=== PATIENT | female | born 1985 | race Caucasian/White ===

== ENCOUNTER 2017-03-15 08:02 | Emergency (ER) | payer OTHER ==
[~2017-03-15] VITALS: Ht 165.1 cm; Wt 95.0 kg
[~2017-03-15 08:02] MED LIST: ACET1TAB40 PO; ACET500C5 PO; AMO500 PO; CEPH-443 PO; IBUP-1542 PO; NAPR-260 PO; ONDA4TAB35 PO
[2017-03-15 08:07] VITALS: Ht 165.1 cm; Wt 95.0 kg
[2017-03-15] MEDS ORDERED: LIDOCAINE/MYLANTA 40 ML BTL PO STA (08:26)
[2017-03-15] MEDS ORDERED: FAMOTIDINE 20 MG TAB PO STA (08:26)
[2017-03-15] MEDS ORDERED: SOD CHLORIDE 0.9% 1,000 ML IV STA (08:26)
[2017-03-15] MEDS ORDERED: morphine 2 MG INJ IV STA (08:26)
[2017-03-15] MEDS ORDERED: ONDANSETRON 4 MG INJ IV STA ×2 (08:26→10:17)
[2017-03-15] MEDS ORDERED: ACETAMINOPHEN 325 MG TAB PO ONE (08:30)
--- NOTE | 2017-03-15 08:39 | ERD ---
ER Documentation Chief Complaint Date/Time DATE: 03/15/17 TIME: 08:35 Chief Complaint Complains of fever and vomiting x 3 days HPI Patient is a 32 year old female with no past medical history who presents to the ED with fever, non bloody non bilious emesis, and abdominal pain since last night. She states that the pain came on suddenly and is located in periumbilical region. States that she had an episode of non bloody non black non tarry diarrhea yesterday. No diarrhea today. States that she feels nauseous and has had a few episodes of emesis today. Took excedrin yesterday which minimally helped. Denies sick contacts. Denies recent travel or change in foods. Also complains of body aches. Denies seizures or rashes. Denies blurry vision or dizziness. ROS All systems reviewed and are negative except as per history of present illness. Medications Home Meds Active Scripts Nitrofurantoin Monohyd Macrocr* (Macrobid*) 100 Mg Capsr, 100 MG PO BID for 7 Days, CAP Prov:VI CAMPOSC 03/15/17 Acetaminophen* (Tylophen*) 500 Mg Capsule, 1 CAP PO Q6H Y for PAIN AND OR ELEVATED TEMP, #20 CAP Prov:VI CAMPOS-C 03/15/17 Ondansetron (Ondansetron Odt) 4 Mg Tab.rapdis, 4 MG PO Q6H Y for NAUSEA AND/OR VOMITING, #30 TAB Prov:VI CAMPOS-C 03/15/17 Acetaminophen* (Tylophen*) 500 Mg Capsule, 1 CAP PO Q6H Y for PAIN AND OR ELEVATED TEMP, #20 CAP Prov:MANAGUELOD,ISAIAS P USPS LETTER CARRIER 06/16/16 Amoxicillin* (Amoxicillin*) 500 Mg Cap, 500 MG PO TID for 7 Days, CAP Prov:MANAGUELOD,ISAIAS P USPS LETTER CARRIER 06/16/16 Cephalexin* (Keflex*) 500 Mg Capsule, 500 MG PO BID for 7 Days, CAP Prov:SERVANDO WATTS PA-C 05/17/16 Naproxen* (Naprosyn*) 500 Mg Tablet, 500 MG PO BID Y for PAIN AND/OR INFLAMMATION, #30 TAB Prov:JASON TORREZ USPS LETTER CARRIER 06/11/15 Ondansetron Hcl* (Zofran* ODT) 4 mg -ODT Tab.disper, 4 MG PO Q4H Y for NAUSEA AND OR VOMITING, #15 TAB Prov:CHOSEBASTIANA 03/15/15 Acetaminophen-Codeine* (Acetaminophen-Cod #3*) 300-30 Mg Tab, 1 TAB PO Q4H Y for PAIN LEVEL 6-10, #15 TAB Prov:CHO,LISA 03/15/15 Ibuprofen* (Motrin*) 600 Mg Tab, 600 MG PO Q6 for PAIN LEVEL 1-5, #15 TAB Prov:CHO,LISA 03/15/15 Allergies Allergies: Coded Allergies: No Known Allergy (Unverified , 03/15/17) PMhx/Soc History of Surgery: Yes (C SECTION ) Anesthesia Reaction: No Hx Neurological Disorder: No Hx Respiratory Disorders: No Hx Cardiac Disorders: No Hx Psychiatric Problems: No Hx Alcohol Use: Yes (social) Hx Substance Use: No Hx Tobacco Use: No Smoking Status: Never smoker FmHx Family History: No coronary disease, No diabetes, No other Physical Exam Vitals Vital Signs Date Time Temp Pulse Resp B/P Pulse Ox O2 Delivery O2 Flow Rate FiO2 03/15/17 10:37 99.2 103 16 119/63 99 Room Air 03/15/17 08:07 100.6 125 20 138/79 98 Physical Exam GENERAL: Well-developed, well-nourished female. Appears in no acute distress. HEAD: Normocephalic, atraumatic. EYES: Pupils are equally reactive bilaterally. EOMs grossly intact. No conjunctival erythema. ENT: Moist mucous membranes. No uvula deviation. No kissing tonsils. No exudates. NECK: Supple. No lymphadenopathy or thyromegaly. No meningismus. negative kernig. negative brudinski. LUNG: Clear to auscultation bilaterally. No rhonchi, wheezing, rales or coarse breath sounds. HEART: Regular rate and rhythm. No murmurs, rubs or gallops. ABDOMEN: No scars, ecchymosis or rashes noted. Soft,and nondistended. Positive bowel sounds in all four quadrants. No rebound tenderness, no guarding. (-) McBurneys point tenderness. No CVA tenderness. mild tenderness in periumbilical region on rlq or ruq or llq tenderness. BACK: No midline tenderness. Extremities: Equal pulses bilaterally. No peripheral clubbing, cyanosis or edema. No unilateral leg swelling. NEUROLOGIC: Alert and oriented. Moving all four extremities. 5/5 strength in all extremities. Normal speech. Steady gait. SKIN: Normal color. Warm and dry. No rashes or lesions. Capillary refill < 2 seconds Result Diagram: 03/15/17 0840 03/15/17 0840 Results 24 hrs Laboratory Tests Test 03/15/17 08:40 03/15/17 08:52 White Blood Count 6.910^3/ul Red Blood Count 5.1210^6/ul Hemoglobin 15.7g/dl Hematocrit 45.3% Mean Corpuscular Volume 88.5fl Mean Corpuscular Hemoglobin 30.7pg Mean Corpuscular Hemoglobin Concent 34.7g/dl Red Cell Distribution Width 12.3% Platelet Count 11323^3/UL Mean Platelet Volume 10.8fl Neutrophils % 78.3% Lymphocytes % 15.5% Monocytes % 5.4% Eosinophils % 0.3% Basophils % 0.1% Nucleated Red Blood Cells % 0.0/100WBC Neutrophils # 5.410^3/ul Lymphocytes # 1.110^3/ul Monocytes # 0.410^3/ul Eosinophils # 0.010^3/ul Basophils # 0.010^3/ul Nucleated Red Blood Cells # 0.010^3/ul Sodium Level 139mmol/L Potassium Level 3.6mmol/L Chloride Level 103mmol/L Carbon Dioxide Level 23mmol/L Anion Gap 17 Blood Urea Nitrogen 10mg/dl Creatinine 0.60mg/dl Glucose Level 121mg/dl Calcium Level 9.1mg/dl Total Bilirubin 0.5mg/dl Direct Bilirubin 0.00mg/dl Indirect Bilirubin 0.5mg/dl Aspartate Amino Transf (AST/SGOT) 89IU/L Alanine Aminotransferase (ALT/SGPT) 132IU/L Alkaline Phosphatase 117IU/L Total Protein 7.6g/dl Albumin 5.1g/dl Globulin 2.50g/dl Albumin/Globulin Ratio 2.04 Lipase 32U/L Urine Color LEONOR Urine Clarity CLOUDY Urine pH 5.0 Urine Specific [place] 1.027 Urine Ketones NEGATIVEmg/dL Urine Nitrite NEGATIVEmg/dL Urine Bilirubin NEGATIVEmg/dL Urine Urobilinogen NEGATIVEmg/dL Urine Leukocyte Esterase 1+Antonio/ul Urine Microscopic RBC 1/HPF Urine Microscopic WBC 6/HPF Urine Bacteria FEW/HPF Urine Hemoglobin NEGATIVEmg/dL Urine Glucose NEGATIVEmg/dL Urine Total Protein 2+mg/dl Current Medications Medications (Trade) Dose Ordered Sig/Thomas Route PRN Reason Start Time Stop Time Status Last Admin Dose Admin Sodium Chloride (NS) 1,000 ml @ 1,000 mls/hr Q1H STAT IV 03/15/17 08:26 03/15/17 09:25 DC 03/15/17 08:47 Morphine Sulfate (morphine) 2 mg ONCE STAT IV 03/15/17 08:26 03/15/17 08:29 DC 03/15/17 08:41 Ondansetron HCl (Zofran Inj) 4 mg ONCE STAT IV 03/15/17 08:26 03/15/17 08:29 DC 03/15/17 08:40 Famotidine (Pepcid) 20 mg ONCE STAT PO 03/15/17 08:26 03/15/17 08:29 DC 03/15/17 08:41 Miscellaneous Medication (Gi Cocktail (2)) 40 ml ONCE STAT PO 03/15/17 08:26 03/15/17 08:29 DC 03/15/17 08:40 Acetaminophen (Tylenol Tab) 650 mg ONCE ONCE PO 03/15/17 08:30 03/15/17 08:31 DC 03/15/17 08:40 Morphine Sulfate (morphine) 2 mg ONCE ONCE IV 03/15/17 10:30 03/15/17 10:31 DC 03/15/17 10:21 Ondansetron HCl (Zofran Inj) 4 mg ONCE STAT IV 03/15/17 10:17 03/15/17 10:19 DC 03/15/17 10:21 Procedures/MDM ER COURSE: I kept the patient and/or family informed of laboratory and diagnostic imaging results throughout the emergency room course. MEDICATIONS: Patient was given IV fluids, morphine and Zofran. Seen improvement in her symptoms with no adverse reaction. LAB INTERPRETATION: CBC showed no evidence of systemic infection or severe anemia. CMP showed no evidence of electrolyte abnormalities, severe acidosis, alkalosis, renal failure , or liver disease. Lipase showed no evidence of acute pancreatitis. UA shows 1 + leukocytes with no nitrites or hematuria. Urine test was negative. MEDICAL DECISION MAKING: This is a 32-year-old female with no past medical history who presents with periumbilical abdominal pain 1 day. Vital signs were reviewed.Patient is not hypoxic. Patient had a temperature of 100.6 here in the ED with the pulse of 125. Patient's abdominal pain was localized in the periumbilical region. Patient did not have right upper quadrant or epigastric pain. I have low suspicion for cholecystitis or choledocholithiasis. Patient did have slightly elevated transaminase days however her lipase and her bilirubin was within normal limits. I reexamined patient after administration of medication and patient did not have any abdominal pain upon examination. Patient seen improvement in her symptoms and was ready to be discharged home. Patient's abdominal pain is likely viral in etiology as she has been vomiting and had diarrhea. Low suspicion for ACS, AAA, perforated ulcer, bowel obstruction, cholecystitis, choledocholithiasis, cholangitis, pancreatitis, hepatic abscess, appendicitis, diverticulitis, gastroenteritis, hepatitis, peptic ulcer disease. Her urine does show 1+ leukocytes and I will be treating the patient for a UTI. Low suspicion for ovarian torsion, PID, tuboovarian abscess, ectopic , bowel obstruction, pyelonephritis, UTI, appendicitis, cervicitis, septic , molar , HELLP syndrome, preeclampsia, eclampsia, placenta previa, placenta abruptia. Patient's vitals are within normal limits. Her temperature is down trending her pulse is down trending. Low suspicion for ACS, PE, AAA, dissection, DVT DISCHARGE: At this time, patient is stable for discharge and outpatient management with no new complaints during the ER course. Patient was sent home with Macrobid, Zofran and Tylenol. Advised patient to have close follow-up and return in 8-12 hours for recheck. Patient will be discharged home with instructions to recheck for new or worsening symptoms such as fever, nausea, weakness, LOC and to follow up with primary care in the next 1-2 days. Patient was advised to return to the ER for any new or worsening symptoms. Plan was discussed and patient and/or family understands and agrees. Home instructions were given. Departure Diagnosis: Primary Impression: Abdominal pain Abdominal location: periumbilical Qualified Code: R10.33 - Periumbilical abdominal pain Condition: Stable VI CAMPOS PA-C Mar 15, 2017 08:39
[2017-03-15 09:16] LABS: ADD SCAN DIFF NO
[2017-03-15 09:19] LABS: BASOPHILS % 0.1 % (0.0-2.0); EOSINOPHILS % 0.3 % (0.0-7.0); HEMATOCRIT 45.3 % (37.0-47.0); HEMOGLOBIN 15.7 g/dl (12.0-16.0); LYMPHOCYTES # 1.1 10^3/ul (0.8-2.9); LYMPHOCYTES % 15.5 % (15.0-51.0); MEAN CORPUSCULAR HEMOGLOBIN 30.7 pg (29.0-33.0); MEAN CORPUSCULAR HGB CONC 34.7 g/dl (32.0-37.0); MEAN CORPUSCULAR VOLUME 88.5 fl (82.0-101.0); MEAN PLATELET VOLUME 10.8 fl (7.4-10.4); MONOCYTE # 0.4 10^3/ul (0.3-0.9); MONOCYTES % 5.4 % (0.0-11.0); NEUTROPHIL # 5.4 10^3/ul (1.6-7.5); NEUTROPHILS % 78.3 % (39.0-77.0); PLATELET COUNT 237 10^3/UL (140-415); RED BLOOD COUNT 5.12 10^6/ul (4.20-5.40); RED CELL DISTRIBUTION WIDTH 12.3 % (11.5-14.5); WHITE BLOOD COUNT 6.9 10^3/ul (4.8-10.8)
[2017-03-15 09:37] LABS: ALBUMIN 5.1 g/dl (3.3-4.9); ALBUMIN/GLOBULIN RATIO 2.04; BILIRUBIN,INDIRECT 0.5 mg/dl (0-1.1); BILIRUBIN,TOTAL 0.5 mg/dl (0.2-1.3); CALCIUM 9.1 mg/dl (8.4-10.2); CREATININE 0.6 mg/dl (0.44-1.00); POTASSIUM 3.6 mmol/L (3.5-5.1); TOTAL PROTEIN 7.6 g/dl (6.1-8.1)
[2017-03-15 09:45] LABS: ADD UMIC YES; UR ASCORBIC ACID NEGATIVE (NEGATIVE); UR BACTERIA FEW /HPF (NONE SEEN); UR BILIRUBIN (Dip) NEGATIVE (NEGATIVE); UR BLOOD (Dip) NEGATIVE (NEGATIVE); UR CLARITY CLOUDY (CLEAR); UR COLOR AMBER (YELLOW); UR GLUCOSE (Dip) NEGATIVE (NEGATIVE); UR KETONES (Dip) NEGATIVE (NEGATIVE); UR LEUKOCYTE ESTERASE (Dip) 1+ Leu/ul (NEGATIVE); UR NITRITE (Dip) NEGATIVE (NEGATIVE); UR RBC 1 /HPF (0-5); UR SPECIFIC GRAVITY (Dip) 1.027 (1.003-1.030); UR TOTAL PROTEIN (Dip) 2+ mg/dl (NEGATIVE); UR UROBILINOGEN (Dip) NEGATIVE (NEGATIVE)
[2017-03-15] MEDS ORDERED: morphine 2 MG INJ IV ONE (10:30)
[2017-03-15] MEDS ORDERED: ACET500C5 PO (10:35)
[2017-03-15] MEDS ORDERED: ONDA4TAB14 PO (10:35)
[2017-03-15 10:37] VITALS: BP 119/63; PULSE 103; RESP 16; TEMP 99.2
[2017-03-15] MEDS ORDERED: NITR-58 PO (10:38)
[2017-03-15 12:25] LABS: UR AMORPHOUS CRYSTAL FEW /HPF (NONE SEEN); UR MUCUS MANY /HPF (NONE SEEN); UR SQUAMOUS EPITHELIAL CELL FEW /HPF (FEW); UR WBC CLUMPS FEW /HPF (NONE SEEN)
== END 2017-03-15 10:52 | disposition home or self-care (01) ==
LOC: FTE 08:02
DX: R10.33 Periumbilical pain (principal); R11.10 Vomiting, unspecified
CPT/HCPCS: 80053; 81001; 83690; 85025; J2270; J2405; J7030; Z7610; 36415; 96374; 96375; 96376

== ENCOUNTER 2019-04-12 20:53 | Emergency (ER) | payer OTHER ==
[~2019-04-12] VITALS: Ht 162.6 cm; Wt 90.7 kg
[~2019-04-12 20:53] MED LIST changes: +ACET325T33 PO; -AMO500 PO; +AMOX500C2 PO; -NAPR-260 PO; +NAPR-985 PO; +NITR-58 PO; +ONDA4TAB14 PO
[2019-04-12 21:04] VITALS: Ht 162.6 cm; Wt 90.7 kg
[2019-04-12] MEDS ORDERED: ACETAMINOPHEN 325 MG TAB PO STA (21:24)
[2019-04-12] MEDS ORDERED: ONDANSETRON 4 MG INJ IV STA (21:24)
[2019-04-12] MEDS ORDERED: SOD CHLORIDE 0.9% 1,000 ML IV STA (21:24)
[2019-04-13 00:37] VITALS: BP 113/64; PULSE 78; RESP 18
--- NOTE | 2019-04-13 00:54 | ERD ---
ER Documentation Chief Complaint Chief Complaint abd pain started 1 hour ago. HPI This patient is a 34-year-old female presenting to the emergency department complaining of right-sided suprapubic pain which began suddenly about 3 hours prior to arrival. She is reportedly 6 weeks . Her last menstrual cycle was 03/02/2019. She is G5, . Pain is rated 8/10 in severity, constant, cramping sensation. She took no medication for relief of symptoms. She also reports 3 episodes of nonbilious and nonbloody vomiting. She denies any upper abdominal pain, fevers, chills, or other symptoms at this time. ROS All systems reviewed and are negative except as per history of present illness. Medications Home Meds Active Scripts Acetaminophen* (Tylenol*) 325 Mg Tablet, 2 TAB PO Q6 PRN for PAIN AND OR ELEVATED TEMP, #20 TAB Prov:MANUEL BEALC 04/13/19 Nitrofurantoin Monohyd Macrocr* (Macrobid*) 100 Mg Capsr, 100 MG PO BID for 7 Days, CAP Prov:VI CAMPOSC 03/15/17 Acetaminophen* (Tylophen*) 500 Mg Capsule, 1 CAP PO Q6H PRN for PAIN AND OR ELEVATED TEMP, #20 CAP Prov:VI CAMPOSC 03/15/17 Ondansetron (Ondansetron Odt) 4 Mg Tab.rapdis, 4 MG PO Q6H PRN for NAUSEA AND/OR VOMITING, #30 TAB Prov:VI CAMPOS PA-C 03/15/17 Acetaminophen* (Tylophen*) 500 Mg Capsule, 1 CAP PO Q6H PRN for PAIN AND OR ELEVATED TEMP, #20 CAP Prov:MANAGUELOD,ISAIAS P CHIEF LENDING OFFICER 06/16/16 Amoxicillin* (Amoxicillin*) 500 Mg Cap, 500 MG PO TID for 7 Days, CAP Prov:MANAGUELOD,ISAAIS P CHIEF LENDING OFFICER 06/16/16 Cephalexin* (Keflex*) 500 Mg Capsule, 500 MG PO BID for 7 Days, CAP Prov:SERVANDO WATTS-C 05/17/16 Naproxen* (Naprosyn*) 500 Mg Tablet, 500 MG PO BID PRN for PAIN AND/OR INFLAMMATION, #30 TAB Prov:JASON TORREZ CHIEF LENDING OFFICER 06/11/15 Ondansetron Hcl* (Zofran* ODT) 4 mg -ODT Tab.disper, 4 MG PO Q4H PRN for NAUSEA AND OR VOMITING, #15 TAB Prov:CHO,LISA 03/15/15 Acetaminophen-Codeine* (Acetaminophen-Cod #3*) 300-30 Mg Tab, 1 TAB PO Q4H PRN for PAIN LEVEL 6-10, #15 TAB Prov:CHO,LISA 03/15/15 Ibuprofen* (Motrin*) 600 Mg Tab, 600 MG PO Q6 for PAIN LEVEL 1-5, #15 TAB Prov:CHO,LISA 03/15/15 Allergies Allergies: Coded Allergies: No Known Allergy (Unverified , 04/12/19) PMhx/Soc History of Surgery: Yes (C SECTION ) Anesthesia Reaction: No Hx Neurological Disorder: No Hx Respiratory Disorders: No Hx Cardiac Disorders: No Hx Psychiatric Problems: No Hx Alcohol Use: Yes (social) Hx Substance Use: No Hx Tobacco Use: No FmHx Family History: No diabetes Physical Exam Vitals Vital Signs Date Temp Pulse Resp B/P (MAP) Pulse Ox O2 O2 Flow FiO2 Time Delivery Rate 04/13/19 98.4 78 18 113/64 96 00:37 (80) 04/12/19 99.2 93 18 131/76 100 21:04 (94) Physical Exam Const: No acute distress Head: Atraumatic Eyes: Normal Conjunctiva ENT: Normal External Ears, Nose and Mouth. Neck: Full range of motion. No meningismus. Resp: Clear to auscultation bilaterally Cardio: Regular rate and rhythm, no murmurs Abd: Soft, non tender, non distended. Normal bowel sounds. No rebound tenderness or guarding. No McBurney's point tenderness. Tenderness palpation of the right suprapubic region. Skin: No petechiae or rashes Back: No midline or flank tenderness Ext: No cyanosis, or edema Neur: Awake and alert Psych: Normal Mood and Affect Result Diagram: 04/12/19213904/12/192139 Results 24 hrs Laboratory Tests Test 04/12/19 21:40 White Blood Count 6.7 10^3/ul Red Blood Count 4.88 10^6/ul Hemoglobin 13.6 g/dl Hematocrit 41.1 % Mean Corpuscular Volume 84.2 fl Mean Corpuscular Hemoglobin 27.9 pg Mean Corpuscular Hemoglobin Concent 33.1 g/dl Red Cell Distribution Width 13.9 % Platelet Count 334 10^3/UL Mean Platelet Volume 10.0 fl Immature Granulocytes % 0.200 % Neutrophils % 60.6 % Lymphocytes % 31.7 % Monocytes % 5.3 % Eosinophils % 1.7 % Basophils % 0.5 % Nucleated Red Blood Cells % 0.0 /100WBC Immature Granulocytes # 0.010 10^3/ul Neutrophils # 4.0 10^3/ul Lymphocytes # 2.1 10^3/ul Monocytes # 0.4 10^3/ul Eosinophils # 0.1 10^3/ul Basophils # 0.0 10^3/ul Nucleated Red Blood Cells # 0.0 10^3/ul Urine Color YELLOW Urine Clarity SLIGHTLY CLOUDY Urine pH 6.0 Urine Specific [place] 1.020 Urine Ketones NEGATIVE mg/dL Urine Nitrite NEGATIVE mg/dL Urine Bilirubin NEGATIVE mg/dL Urine Urobilinogen NEGATIVE mg/dL Urine Leukocyte Esterase NEGATIVE Antonio/ul Urine Microscopic RBC 0 /HPF Urine Microscopic WBC 1 /HPF Urine Squamous Epithelial Cells FEW /HPF Urine Hemoglobin NEGATIVE mg/dL Urine Glucose NEGATIVE mg/dL Urine Total Protein NEGATIVE mg/dl Sodium Level 139 mmol/L Potassium Level 3.4 mmol/L Chloride Level 101 mmol/L Carbon Dioxide Level 27 mmol/L Anion Gap 11 Blood Urea Nitrogen 15 mg/dl Creatinine 0.78 mg/dl Est Glomerular Filtrat Rate mL/min > 60 mL/min Glucose Level 114 mg/dl Calcium Level 9.7 mg/dl Total Bilirubin 0.3 mg/dl Direct Bilirubin 0.00 mg/dl Indirect Bilirubin 0.3 mg/dl Aspartate Amino Transf (AST/SGOT) 50 IU/L Alanine Aminotransferase (ALT/SGPT) 51 IU/L Alkaline Phosphatase 90 IU/L Total Protein 8.3 g/dl Albumin 4.9 g/dl Globulin 3.40 g/dl Albumin/Globulin Ratio 1.44 Beta HCG, Quantitative 1185.3 mIU/ml Current Medications Medications Dose Sig/Thomas Start Time Status Last (Trade) Ordered Route PRN Stop Time Admin Dose Reason Admin Sodium 1,000 ml @ Q1H STAT 04/12/19 DC 04/12/19 Chloride 1,000 mls/hr IV 21:24 21:32 04/12/19 22:23 650 mg ONCE STAT 04/12/19 DC 04/12/19 Acetaminophen PO 21:24 21:33 (Tylenol 04/12/19 21:25 Tab) Ondansetron 4 mg ONCE STAT 04/12/19 DC 04/12/19 HCl (Zofran IV 21:24 21:32 Inj) 04/12/19 21:25 [place] [id number] Radiology Main Line: [phone] DIAGNOSTIC IMAGING REPORT Patient: ANTHONY OLSON : 1985 Age: 34 Sex: F MR #: [id number] DOS: 04/12/192123 Ordering MD: MANUEL BEAL PA-C Location: [facility] Room/Bed: PROCEDURE: OB Ultrasound. CLINICAL INDICATION: Positive test. Vaginal bleeding. TECHNIQUE: Ultrasound of the pelvis was performed with transabdominal and transvaginal sonography in the axial and sagittal planes. COMPARISON: No prior study is available for comparison. FINDINGS: There is no intrauterine gestational sac. There is no uterine enlargement or mass. The uterus measures 7.7 x 5.0 x 6.8 cm. Endometrial thickness is 31.6 mm. The right ovary is not visualized. The left ovary appears normal measuring 4.0 x 2.5 x 2.4 cm. Color Doppler and pulsed Doppler sonography demonstrate normal flow to the left ovary. There is no other pelvic mass or free fluid. IMPRESSION: 1. No intrauterine and no adnexal mass. 2. Differential diagnosis includes early intrauterine , failed or ectopic . 3. Recommend correlation with serial serum beta HCG and follow-up ultrasound in 10 days or earlier if clinically warranted. Please see reference below. 4. Thickened endometrium measuring 31.6 mm. Reference: Jinny Soto et al. NEJM 2013; 369: [id number]. Please note that if the serum beta HCG is greater than 3000 mIU/mL, the proba bility of a nonviable IUP or ectopic is 99.5% and the probability of a viable IUP is 0.5%. The beta HCG may be higher than predicted for gestational age in early twin pregnancies, and a single serum HCG measurement cannot reliably differentiate an IUP (viable or nonviable) from an ectopic . RPTAT: QQ .Praful Mosley MD, Date Time Electronically viewed and signed by .Praful Mosley MD, MD on 04/12/2019 23:06 .R/ CC: MANUEL BEAL PA-C [phone] Procedures/MDM 34-year-old female presents to the emergency department complaining of pelvic pain. She is reportedly 6 weeks . Ultrasound showed no IUP and no adnexal masses. The full report interpreted by the radiologist may be viewed above. Patient's beta-hCG was 1185. CBC and CMP were within normal limits. Urinalysis showed no evidence of urinary tract infection. Given that there was suspicion for ectopic , I did consult the On-call SCALE BALANCER physician, Dr. Merchant. She kindly reviewed the ultrasound images herself and she visited the patient and examined her in the emergency department. After her examination, she stated patient was improved and she may have 3-day follow-up in the emergency department. She should have repeat beta-hCG and ultrasound. Patient was advised she needs to return in 3 days for repeat testing. She was given ectopic precautions and advised to return immediately for any new, worsening, or concerning symptoms. She was in agreement with the diagnosis, plan company for follow-up, return precautions. Departure Diagnosis: Primary Impression: Pelvic pain complicating Trimester: first trimester Qualified Codes: O26.891 - Other specified related conditions, first trimester; R10.2 - Pelvic and perineal pain Condition: Fair Patient Instructions: Pelvic Pain In : Unclear (2-3 Trimester) Additional Instructions: Return to this facility in 3 DAYS for a follow-up exam.Return sooner if your condition worsens. MANUEL BEAL PA-C Apr 13, 2019 00:54
--- NOTE | 2019-04-13 01:43 | CONS ---
Assessment/Plan Assessment/Plan Assessment/Plan (Daily) A IUP very early /ectopic P repeat u/s and BHCG in 3days To ER immediately if symptoms increase Consultation Date/Type/Reason Admit Date/Time Date of Consultation: Apr 13, 2019 Type of Consult hardwood floor layer Reason for Consultation pelvic pain R/O ectopic /early IUP Requesting Provider: MANUEL BEAL PA-C Date/Time of Note DATE: 04/13/19 TIME: 01:21 Hx of Present Illness 34 y.o A2 who had x2 c/s LMP March 02 ,menstrual interval 30-34d presents ER with sharp pelvic pain ,suddenly developed at 2000 with nausea and vomiting, denies any diarrhea, or vaginal bleeding. currently on ampicillin for UTI , U/S at ER neg for adnexal mass or Gestational sac in utero ,though ? halo sign in utero. manpower development manager free fluid ,BHCG 1185 . H&H 13.6/41.1 with wbc 6700 PE no significant except suprpubic tenderness, U/A neg feels much better after tylenol 650mg patient was given instruction to [facility] immediately if symptoms recurs otherwise to [facility] ER in 3days for repeat U/S for IUP/tubal with HCG level suprapubic pain with nausea vomiting Constitutional: no complaints, improved Eyes: no complaints ENT: no complaints Respiratory: no complaints Cardiovascular: no complaints Gastrointestinal: pain, nausea, vomiting Genitourinary: no complaints Musculoskeletal: no complaints Skin: no complaints Neurologic: no complaints Endocrine: no complaints Past Medical History Home Meds Active Scripts Acetaminophen* (Tylenol*) 325 Mg Tablet, 2 TAB PO Q6 PRN for PAIN AND OR ELEVATED TEMP, #20 TAB Prov:MANUEL BEAL PA-C 04/13/19 Nitrofurantoin Monohyd Macrocr* (Macrobid*) 100 Mg Capsr, 100 MG PO BID for 7 Days, CAP Prov:VI CAMPOS PA-C 03/15/17 Acetaminophen* (Tylophen*) 500 Mg Capsule, 1 CAP PO Q6H PRN for PAIN AND OR ELEVATED TEMP, #20 CAP Prov:VI CAMPOS PA-C 03/15/17 Ondansetron (Ondansetron Odt) 4 Mg Tab.rapdis, 4 MG PO Q6H PRN for NAUSEA AND/OR VOMITING, #30 TAB Prov:VI CAMPOS PA-C 03/15/17 Acetaminophen* (Tylophen*) 500 Mg Capsule, 1 CAP PO Q6H PRN for PAIN AND OR ELEVATED TEMP, #20 CAP Prov:MANAGUELOD,ISAIAS P CHILD DEVELOPMENT SPECIALIST 06/16/16 Amoxicillin* (Amoxicillin*) 500 Mg Cap, 500 MG PO TID for 7 Days, CAP Prov:MANAGUELOD,ISAIAS P CHILD DEVELOPMENT SPECIALIST 06/16/16 Cephalexin* (Keflex*) 500 Mg Capsule, 500 MG PO BID for 7 Days, CAP Prov:SERVANDO WATTS PA-C 05/17/16 Naproxen* (Naprosyn*) 500 Mg Tablet, 500 MG PO BID PRN for PAIN AND/OR INFLA MMATION, #30 TAB Prov:SHANJASON X. CHILD DEVELOPMENT SPECIALIST 06/11/15 Ondansetron Hcl* (Zofran* ODT) 4 mg -ODT Tab.disper, 4 MG PO Q4H PRN for NAUSEA AND OR VOMITING, #15 TAB Prov:CHO,LISA 03/15/15 Acetaminophen-Codeine* (Acetaminophen-Cod #3*) 300-30 Mg Tab, 1 TAB PO Q4H PRN for PAIN LEVEL 6-10, #15 TAB Prov:CHO,LISA 03/15/15 Ibuprofen* (Motrin*) 600 Mg Tab, 600 MG PO Q6 for PAIN LEVEL 1-5, #15 TAB Prov:CHO,LISA 03/15/15 Medications amlodipine 5mg Allergies: Coded Allergies: No Known Allergy (Unverified , 04/12/19) Past Surgical History x2 c/s Family History Significant Family History: cancer (mom lung cancer), hypertension, other (fat her kidney cancer) Social History Alcohol Use: none Smoking Status: Current every day smoker Drug Use: none Exam/Review of Systems Exam Vitals Vital Signs Date Temp Pulse Resp B/P (MAP) Pulse Ox O2 O2 Flow FiO2 Time Delivery Rate 04/13/19 98.4 78 18 113/64 96 00:37 (80) Intake and Output 04/12/19 04/12/19 04/13/19 1515:00 23:00 07:00 IntakeIntake Total 1000 ml BalanceBalance 1000 ml Constitutional: alert, oriented, well developed Psych: no complaints, nl mood/affect Head: normocephalic, atraumatic Eyes: nl conjunctiva, EOMI, nl lids, nl sclera, PERRL ENMT: nl external ears & nose, nl lips & teeth, nl nasal mucosa & septum Neck: supple, non-tender Respiratory: clear to auscultation, normal air movement Cardiovascular: regular rate and rhythm, nl pulses Gastrointestinal: soft, nl liver, spleen, non-tender, tender (suprapubic region) Genitourinary - Female: other (u/s neg) Musculoskeletal: nl extremities to inspection, nl gait and stance Extremities: normal pulses Neurological: CANINE SERVICE INSTRUCTOR TRAINER II-XII intact, nl mental status, nl speech, nl strength Results Result Diagram: 04/12/19213904/12/192139 Results 24hrs Laboratory Tests Test 04/12/19 21:40 White Blood Count 6.7 Red Blood Count 4.88 Hemoglobin 13.6 Hematocrit 41.1 Mean Corpuscular Volume 84.2 Mean Corpuscular Hemoglobin 27.9 L Mean Corpuscular Hemoglobin Concent 33.1 Red Cell Distribution Width 13.9 Platelet Count 334 # Mean Platelet Volume 10.0 Immature Granulocytes % 0.200 Neutrophils % 60.6 Lymphocytes % 31.7 Monocytes % 5.3 Eosinophils % 1.7 Basophils % 0.5 Nucleated Red Blood Cells % 0.0 Immature Granulocytes # 0.010 Neutrophils # 4.0 Lymphocytes # 2.1 Monocytes # 0.4 Eosinophils # 0.1 Basophils # 0.0 Nucleated Red Blood Cells # 0.0 Urine Color YELLOW Urine Clarity SLIGHTLY CLOUDY A Urine pH 6.0 Urine Specific [place] 1.020 Urine Ketones NEGATIVE Urine Nitrite NEGATIVE Urine Bilirubin NEGATIVE Urine Urobilinogen NEGATIVE Urine Leukocyte Esterase NEGATIVE Urine Microscopic RBC 0 Urine Microscopic WBC 1 Urine Squamous Epithelial Cells FEW Urine Hemoglobin NEGATIVE Urine Glucose NEGATIVE Urine Total Protein NEGATIVE Sodium Level 139 Potassium Level 3.4 L Chloride Level 101 Carbon Dioxide Level 27 Anion Gap 11 Blood Urea Nitrogen 15 Creatinine 0.78 Est Glomerular Filtrat Rate mL/min > 60 Glucose Level 114 Calcium Level 9.7 Total Bilirubin 0.3 Direct Bilirubin 0.00 Indirect Bilirubin 0.3 Aspartate Amino Transf (AST/SGOT) 50 H Alanine Aminotransferase (ALT/SGPT) 51 Alkaline Phosphatase 90 Total Protein 8.3 H Albumin 4.9 Globulin 3.40 H Albumin/Globulin Ratio 1.44 Beta HCG, Quantitative 1185.3 ANTWAN ROBLEDO MD Apr 13, 2019 01:36
== END 2019-04-13 00:38 | disposition home or self-care (01) ==
LOC: FTE 20:53
DX: O26.891 Other specified pregnancy related conditions, first trimester (principal); R10.2 Pelvic and perineal pain; Z3A.00 Weeks of gestation of pregnancy not specified
CPT/HCPCS: 36415; 76801; 76817; 80053; 81001; 84702; 85025; 96361; 96374; J2405; J7030; Z7502; Z7610; 81003